=== PATIENT | female | born 1940 | race Caucasian/White ===

== ENCOUNTER → 2021-07-18 | Outpatient (REF) | payer MEDICARE, SELFPAY ==
[2021-07-18 08:56] LABS: Hematocrit 22.8 % (37-47); Hemoglobin 7.5 g/dL (12.0-15.0); Mean Corp Hgb Conc 32.9 g/dL (32-36); Mean Corpuscular Hgb 29.4 pg (27.0-32.0); Mean Corpuscular Volume 89.4 fL (81-99); Mean Platelet Vol. 10.5 fl (6.2-12.0); Platelet Count 392 K/mm3 (150-450); RBC Distribution Width CV 15.9 % (11.6-14.6); RBC Distribution Width SD 51.8 fl (35.1-43.9); Red Blood Count 2.55 M/mm3 (4.2-5.4); White Blood Count 9.7 K/mm3 (4.4-11.0)
[2021-07-18 09:04] LABS: Vitamin D,25 Hydroxy 92.5 ng/mL
[2021-07-18 09:16] LABS: ALB/GLOB Ratio 0.6 RATIO (0.9-2.4); AST(SGOT) 26 U/L (15-37); Alanine Aminotransfer ALT/SGPT 11 U/L (13-56); Albumin, Serum 2.3 g/dL (3.2-5.0); Alkaline Phosphatase 115 U/L (45-117); Anion Gap 5 (5-15); BUN 44 mg/dL (7-18); BUN/Creat Ratio 18.9 RATIO (10-20); Calcium,Total 9.1 mg/dL (8.5-10.1); Chloride 105 mmol/L (98-107); Cholesterol 166 mg/dL (200); Creatinine, Serum 2.33 mg/dL (0.55-1.02); EST Glomerular Filtration Rate 21 mL/min (>60); Est Glom Filt Rate - Afr Amer 26 mL/min (>60); Globulin 3.8 g/dL (2.2-4.2); Glucose 94 mg/dL (74-106); High Density Lipoprotein 37 mg/dL; Magnesium 2.2 mg/dL (1.6-2.6); Potassium 4.6 mmol/L (3.5-5.1); Protein, Total 6.1 g/dL (6.4-8.2); Sodium Level 135 mmol/L (136-145); Thyroid Stim Hormone (TSH) 0.68 uIU/mL (0.358-3.74); Triglycerides 190 mg/dL; Very Low Density Lipoprotein 38 mg/dL (5-40)
== END | disposition home or self-care (01) ==
LOC: OLS.ACW400 05:00
PROVIDERS: Visit Provider Family Medicine
DX: E03.9 Hypothyroidism, unspecified (principal); F29 Unspecified psychosis not due to a substance or known physiological condition; F02.80 Dementia in other diseases classified elsewhere, unspecified severity, without behavioral disturbance, psychotic disturbance, mood disturbance, and anxiety; E78.5 Hyperlipidemia, unspecified; E55.9 Vitamin D deficiency, unspecified; I10 Essential (primary) hypertension; M62.81 Muscle weakness (generalized)
CPT/HCPCS: 36415; 80053; 80061; 82306; 83735; 84443; 85027

== ENCOUNTER → 2021-08-19 | Outpatient (REF) | payer MEDICARE, SELFPAY ==
[2021-08-19 08:40] LABS: Color, Urine Yellow (Yellow); Glucose, Dipstick Normal (Normal); Ketone-Dipstick Negative (Negative); Leukocyte Esterase-Dipstick 500 /ul (Negative); Nitrite-Dipstick Negative (Negative); Occult Blood-Urine 150 /ul (Negative); Protein-Dipstick 100 mg/dl (Negative); Specific Gravity, Urine 1.005 (1.002-1.030); Urine Bilirubin Dipstick Negative (Negative); Urine Clarity Cloudy (Clear); Urine Urobilinogen Normal (Normal)
== END | disposition home or self-care (01) ==
LOC: OLS.ACW400 06:00
PROVIDERS: Visit Provider Family Medicine
DX: R44.3 Hallucinations, unspecified (principal); R39.15 Urgency of urination; R35.0 Frequency of micturition; R82.998 Other abnormal findings in urine
CPT/HCPCS: 81002; 87077; 87086; 87088; 87186

== ENCOUNTER → 2021-08-26 | Outpatient (REF) | payer MEDICARE, SELFPAY | END | disposition home or self-care (01) | LOC: OLS.ACW400 08:39 | PROVIDERS: Referring Provider Family Medicine; Visit Provider Family Medicine | DX: S72.402D Unspecified fracture of lower end of left femur, subsequent encounter for closed fracture with routine healing (principal); E03.9 Hypothyroidism, unspecified; E78.5 Hyperlipidemia, unspecified; M62.81 Muscle weakness (generalized) | CPT/HCPCS: 87086; 87088; 87186 ==

== ENCOUNTER → 2021-09-03 | Outpatient (REF) | payer MEDICARE, SELFPAY ==
[2021-09-03 10:49] LABS: Hematocrit 31.9 % (37-47); Hemoglobin 9.7 g/dL (12.0-15.0); Mean Corp Hgb Conc 30.4 g/dL (32-36); Mean Corpuscular Hgb 28.9 pg (27.0-32.0); Mean Corpuscular Volume 94.9 fL (81-99); Mean Platelet Vol. 10.7 fl (6.2-12.0); Platelet Count 315 K/mm3 (150-450); RBC Distribution Width CV 14.8 % (11.6-14.6); RBC Distribution Width SD 52.3 fl (35.1-43.9); Red Blood Count 3.36 M/mm3 (4.2-5.4); White Blood Count 8.3 K/mm3 (4.4-11.0)
[2021-09-03 11:04] LABS: Anion Gap 8 (5-15); BUN 41 mg/dL (7-18); BUN/Creat Ratio 20.7 RATIO (10-20); Calcium,Total 9.6 mg/dL (8.5-10.1); Chloride 107 mmol/L (98-107); Creatinine, Serum 1.98 mg/dL (0.55-1.02); EST Glomerular Filtration Rate 26 mL/min (>60); Est Glom Filt Rate - Afr Amer 31 mL/min (>60); Glucose 90 mg/dL (74-106); Potassium 4.6 mmol/L (3.5-5.1); Sodium Level 139 mmol/L (136-145)
== END | disposition home or self-care (01) ==
LOC: OLS.ACW400 05:00
PROVIDERS: Referring Provider Family Medicine; Visit Provider Family Medicine
DX: S72.402D Unspecified fracture of lower end of left femur, subsequent encounter for closed fracture with routine healing (principal); E03.9 Hypothyroidism, unspecified; E78.5 Hyperlipidemia, unspecified; M62.81 Muscle weakness (generalized)
CPT/HCPCS: 36415; 80048; 85027

== ENCOUNTER → 2021-09-08 | Outpatient (REF) | payer MEDICARE, SELFPAY | END | disposition home or self-care (01) | LOC: OLS.ACW400 | PROVIDERS: Visit Provider Family Medicine | DX: S72.402D Unspecified fracture of lower end of left femur, subsequent encounter for closed fracture with routine healing (principal); E03.9 Hypothyroidism, unspecified; E78.5 Hyperlipidemia, unspecified; M62.81 Muscle weakness (generalized); R44.3 Hallucinations, unspecified | CPT/HCPCS: 87086 ==

== ENCOUNTER → 2021-09-27 | Outpatient (REF) | payer MEDICARE, SELFPAY ==
[2021-09-27 06:05] LABS: Hemoglobin 8.6 g/dL (12.0-15.0)
[2021-09-27 06:20] LABS: Albumin, Serum 2.5 g/dL (3.2-5.0); BUN 56 mg/dL (7-18); BUN/Creat Ratio 23.8 RATIO (10-20); Calcium,Total 9.1 mg/dL (8.5-10.1); Chloride 109 mmol/L (98-107); Creatinine, Serum 2.35 mg/dL (0.55-1.02); EST Glomerular Filtration Rate 21 mL/min (>60); Est Glom Filt Rate - Afr Amer 25 mL/min (>60); Ferritin 137 ng/mL (8-252); Glucose 106 mg/dL (74-106); Iron 22 ug/dL (50-170); Iron Binding Capacity,Total 201 ug/dL (250-450); Magnesium 2.2 mg/dL (1.6-2.6); Phosphorus 3.7 mg/dL (2.5-4.9); Potassium 4.9 mmol/L (3.5-5.1); Sodium Level 140 mmol/L (136-145)
[2021-09-27 06:24] LABS: Protein, Urine (Random) 190.8 mg/dL (<11.9)
[2021-09-29 08:41] LABS: PTHIN 51.2 pg/mL (18.4-80.1)
== END | disposition home or self-care (01) ==
LOC: OLS.ACW400 04:05
PROVIDERS: Referring Provider Family Medicine; Visit Provider Family Medicine
DX: S72.402D Unspecified fracture of lower end of left femur, subsequent encounter for closed fracture with routine healing (principal); N18.4 Chronic kidney disease, stage 4 (severe); N25.81 Secondary hyperparathyroidism of renal origin; E03.9 Hypothyroidism, unspecified; E78.5 Hyperlipidemia, unspecified; M62.81 Muscle weakness (generalized); R80.1 Persistent proteinuria, unspecified; R60.9 Edema, unspecified; D63.1 Anemia in chronic kidney disease; D50.9 Iron deficiency anemia, unspecified
CPT/HCPCS: 36415; 80069; 82570; 82728; 83540; 83550; 83735; 83970; 84156; 85014; 85018

== ENCOUNTER → 2021-10-02 | Outpatient (REF) | payer MEDICARE, SELFPAY ==
[2021-10-03 08:15] LABS: Color, Urine Yellow (Yellow); Glucose, Dipstick Normal (Normal); Ketone-Dipstick Negative (Negative); Leukocyte Esterase-Dipstick 500 /ul (Negative); Nitrite-Dipstick Negative (Negative); Occult Blood-Urine 25 /ul (Negative); Protein-Dipstick 100 mg/dl (Negative); Specific Gravity, Urine 1.015 (1.002-1.030); Urine Bilirubin Dipstick Negative (Negative); Urine Clarity Sl. Cloudy (Clear); Urine Urobilinogen Normal (Normal)
== END | disposition home or self-care (01) ==
LOC: OLS.ACW400 07:57
PROVIDERS: Visit Provider Family Medicine
DX: R30.0 Dysuria (principal); S72.402D Unspecified fracture of lower end of left femur, subsequent encounter for closed fracture with routine healing; E03.9 Hypothyroidism, unspecified; E78.5 Hyperlipidemia, unspecified; M62.81 Muscle weakness (generalized)
CPT/HCPCS: 81002; 87077; 87086; 87088; 87186

== ENCOUNTER → 2021-10-27 | Outpatient (REF) | payer MEDICARE, SELFPAY ==
[2021-10-27 09:12] LABS: Hematocrit 36.2 % (37-47); Hemoglobin 10.4 g/dL (12.0-15.0)
== END | disposition home or self-care (01) ==
LOC: OLS.ACW400 05:00
PROVIDERS: Visit Provider Family Medicine
DX: E03.9 Hypothyroidism, unspecified (principal); E78.5 Hyperlipidemia, unspecified; M62.81 Muscle weakness (generalized); S72.402D Unspecified fracture of lower end of left femur, subsequent encounter for closed fracture with routine healing
CPT/HCPCS: 36415; 85014; 85018

== ENCOUNTER → 2021-11-20 | Outpatient (REF) | payer MEDICARE, SELFPAY ==
[2021-11-20 10:22] LABS: Hemoglobin 11.3 g/dL (12.0-15.0); Mean Corp Hgb Conc 30.5 g/dL (32-36); Mean Corpuscular Hgb 26.8 pg (27.0-32.0); Mean Corpuscular Volume 87.9 fL (81-99); Mean Platelet Vol. 11.5 fl (6.2-12.0); Platelet Count 210 K/mm3 (150-450); RBC Distribution Width CV 18.4 % (11.6-14.6); RBC Distribution Width SD 58.4 fl (35.1-43.9); Red Blood Count 4.21 M/mm3 (4.2-5.4); White Blood Count 6.4 K/mm3 (4.4-11.0)
[2021-11-20 10:54] LABS: Anion Gap 7 (5-15); BUN 35 mg/dL (7-18); BUN/Creat Ratio 19.4 RATIO (10-20); Calcium,Total 9.3 mg/dL (8.5-10.1); Chloride 111 mmol/L (98-107); EST Glomerular Filtration Rate 29 mL/min (>60); Est Glom Filt Rate - Afr Amer 35 mL/min (>60); Glucose 96 mg/dL (74-106); Potassium 4.9 mmol/L (3.5-5.1); Sodium Level 140 mmol/L (136-145)
== END ==
LOC: OLS.ACW400 05:00
PROVIDERS: Visit Provider Family Medicine
DX: S72.402D Unspecified fracture of lower end of left femur, subsequent encounter for closed fracture with routine healing (principal); E03.9 Hypothyroidism, unspecified; E78.5 Hyperlipidemia, unspecified; M62.81 Muscle weakness (generalized)
CPT/HCPCS: 36415; 80048; 85027

== ENCOUNTER → 2021-11-27 | Outpatient (REF) | payer MEDICARE, SELFPAY ==
[2021-11-27 08:46] LABS: Hematocrit 34.8 % (37-47); Hemoglobin 10.4 g/dL (12.0-15.0)
== END ==
LOC: OLS.ACW400 05:00
PROVIDERS: Visit Provider Family Medicine
DX: S72.402D Unspecified fracture of lower end of left femur, subsequent encounter for closed fracture with routine healing (principal); E03.9 Hypothyroidism, unspecified; E78.5 Hyperlipidemia, unspecified; M62.81 Muscle weakness (generalized); Z79.899 Other long term (current) drug therapy
CPT/HCPCS: 36415; 85014; 85018

== ENCOUNTER → 2021-12-30 | Outpatient (REF) | payer MEDICARE, MEDICAID, SELFPAY ==
[2021-12-30 10:01] LABS: Hematocrit 41.7 % (37-47); Hemoglobin 12.4 g/dL (12.0-15.0)
== END ==
LOC: OLS.ACW400 05:00
PROVIDERS: Visit Provider Family Medicine
DX: S72.402D Unspecified fracture of lower end of left femur, subsequent encounter for closed fracture with routine healing (principal); E03.9 Hypothyroidism, unspecified; E78.5 Hyperlipidemia, unspecified; M62.81 Muscle weakness (generalized)
CPT/HCPCS: 36415; 85014; 85018